=== PATIENT | male | born 1940 | race Caucasian/White ===

== ENCOUNTER → 2017-01-08 | Outpatient (CLI) | payer MEDICARE, OTHER ==
[~2017-01-08] MED LIST: ALEVE220 MG PO; CHEWABLE ASPIRI81 MG PO; CLARITIN10 MG PO; FISH OIL1000 MG PO; GLIMEPIRIDE 2MG2 MG PO; JANUVIA50 M1 PO; LEVOTHYROXIN0.112 M1 PO; LISINOPRIL 10MG10 MG PO; LISINOPRIL 5MG T5 MG PO; LOPRESSOR50 MG PO; METAMUCIL MULTI1 CAP PO; METFORMIN HCL1000 MG PO; METOPROLOL SUC100 M1 PO; OMEPRAZOLE DR20 MG PO; PIOGLITAZONE HC30 MG PO; SYNTHROID0.088 MG PO
[2017-01-08 11:05] LABS: BUN 23 mg/dL (7-18)
[2017-01-08 11:10] LABS: GFR (ESTIMATED) 59 ML/MIN (>60)
[2017-01-09 08:40] LABS: Creatinine, Urine 81.8 mg/dL (Not Estab.); Microalbumin, Urine 94.2 ug/mL (Not Estab.)
== END ==
LOC: LAB 09:44
PROVIDERS: Nurse Practitioner Family
DX: E11.8 Type 2 diabetes mellitus with unspecified complications (principal); E78.00 Pure hypercholesterolemia, unspecified; E03.9 Hypothyroidism, unspecified

== ENCOUNTER → 2017-09-24 | Outpatient (CLI) | payer MEDICARE, OTHER ==
[2017-09-24 11:10] LABS: LYMPH # 1.5 K/mm3 (0.7-4.5)
[2017-09-24 11:17] LABS: BUN 24 mg/dL (7-18); HEMOGLOBIN 12.4 g/dL (14.1-18.0)
[2017-09-24 11:27] LABS: GFR (ESTIMATED) 49 ML/MIN (>60)
== END ==
LOC: LAB 10:33
PROVIDERS: Nurse Practitioner Family
DX: E03.9 Hypothyroidism, unspecified (principal); E78.2 Mixed hyperlipidemia; E11.8 Type 2 diabetes mellitus with unspecified complications; N18.3 Chronic kidney disease, stage 3 (moderate)